=== PATIENT | female | born 1995 | race Caucasian/White ===

== ENCOUNTER 2019-04-16 02:08 | Day surgery (SDC) | payer OTHER, SELFPAY ==
[2019-04-13 14:40] VITALS: BMI 26.6
[2019-04-16] VITALS (9 sets, daily range): BP systolic 100–134; BP diastolic 52–74; PULSE 54–78; RESP 12–18; TEMP 36.2–37; O2SAT 98–100
[2019-04-16] MEDS: LACTATED RINGERS 1,000 ML 30 ML IV CONT ×2 (10:50→14:16)
--- NOTE | 2019-04-16 11:59 | WPDANESEPPF ---
Anes - Initial Pre Proc Eval Procedure: Operation Date: 04/16/19 12:30 Proposed Procedures p Laparoscopic Resection of Pelvic Mass - Fawn Graves MD Date/Time: 04/16/19 11:59 Surgeon: Fawn Graves MD Pre Op Diagnosis: pelvic swelling with mass Patient Data Age: 23 Gender: F Height: 5 ft 5 in Weight: 72.8 kg Last Vital Signs Temp 37.0 C 04/16/19 10:55 Pulse 78 04/16/19 10:55 Resp 18 04/16/19 10:55 BP 134/72 04/16/19 10:55 Pulse Ox 100 04/16/19 10:55 Allergies Allergy/AdvReac Type Severity Reaction Status Date / Time No Known Allergies Allergy Verified 04/16/19 10:57 Home Medications Medication Instructions Recorded Confirmed Type 21-iron fu-folic acid 1 tablet PO DAILY 04/13/19 04/16/19 History [ Complete] valacyclovir 500 mg PO DAILY PRN 04/13/19 04/16/19 History Patient hx anesthesia problems: none Family hx anesthesia problems: none Anes - Eval Final PreProcedure Day of Procedure 04/16/19 11:59 Patient weight: overweight Heart: regular rate and rhythm Lungs: clear to auscultation Airway: Mallampati scale class 1 Neurological: alert and oriented Last oral intake: >/= 8 hours ASA classification: II Emergent: no Anesthetic plan: proceed Anesthesia type and monitoring: general ETT and standard monitoring Informed Consent: The patient's anesthetic plan and its attendant risks and benefits were discussed with the patient/family/POA. Questions were solicited and answers provided to the satisfaction of the patient/family/POA.
--- NOTE | 2019-04-16 12:12 | PM.IMHP ---
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 It is on her right ovary. She understands that the recommended treatment of this is a surgical removal of the mass. We have agreed to perform a laparoscopic resection of pelvic mass. She understands the procedure. It was explained in detail. She understands the risk. Risks were explained in detail. She understands that injuries during surgery can result in hospitalization, prolonged illness, and more surgery. She understands there is risk of hemorrhage and infection. Review of Systems Constitutional: Constitutional: Reports no additional constitutional complaints, Denies fatigue, Denies headache(s), Denies lethargy and Denies weakness Eyes: Eyes: Reports no additional eye complaints, Denies blurry vision and Denies photophobia ENT: Reports as per HPI, Denies headache(s) and Denies neck pain Cardiovascular: Cardiovascular: Denies chest pain, Denies diaphoresis, Denies leg edema, Denies palpitations and Denies dyspnea Respiratory: Respiratory: Denies hemoptysis, Denies dyspnea and Denies wheezing Gastrointestinal: Gastrointestinal: Denies abdominal pain, Denies melena, Denies bloating, Denies hematochezia, Denies nausea and Denies vomiting Genitourinary: Genitourinary: Reports no additional female genitourinary complaints Musculoskeletal: Musculoskeletal: Denies joint swelling, Denies neck pain, Denies numbness and Denies stiffness Neurologic: Denies Abnormal speech present, Denies confusion, Denies headache(s), Denies numbness and Denies weakness Psychiatric: Psychiatric: Denies anxiety, Denies confusion, Denies depression, Denies homicidal ideation and Denies suicidal ideation Endocrine: Endocrine: Denies fatigue and Denies palpitations Allergic/Immunologic: Allergic/Immunologic: Denies wheezing Meds Home Medications and Allergies Home Medications Medication Instructions Recorded Confirmed Type 21-iron fu-folic acid 1 tablet PO DAILY 04/13/19 04/16/19 History [ Complete] valacyclovir 500 mg PO DAILY PRN 04/13/19 04/16/19 History Allergies Allergy/AdvReac Type Severity Reaction Status Date / Time No Known Allergies Allergy Verified 04/16/19 10:57 Vital Signs Vital Signs - 24 hr 04/16/19 10:55 Temperature 98.6 F Pulse Rate 78 Respiratory Rate 18 Blood Pressure 134/72 Pulse Oximetry 100 Exam Const: General: healthy appearing, comfortable and no acute distress; No confusion Orientation/consciousness: No confusion Eyes: Direct Ophthalmoscopy: No photophobia Resp: Auscultation: clear to auscultation bilaterally, no rales, no rhonchi and no wheezes Cardio: Rate: regular rate Heart sounds: no click, no murmurs and no rubs GI: Inspection: non-distended GI Palp: No abdominal tenderness Auscultation: normal bowel sounds Neuro: General: No confusion Speech: No Abnormal speech present Extrem: General: normal to inspection, no pedal edema and no calf tenderness Assessment and Plan Assessment and plan (1) Pelvic mass: Code(s): R19.00 - Intra-abdominal and pelvic swelling, mass and lump, unspecified site Status: Acute Assessment and Plan: This patient is a 23-year-old female with the 7 cm pelvic mass. 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 We have agreed to perform laparoscopic resection of pelvic mass. She understands the risks, benefits, and alternatives. She has completed the informed consent process and is ready to proceed.
[2019-04-16] MEDS: KETOROLAC 30 MG/ML VIAL (*BKC) IV PUSH (13:56)
--- NOTE | 2019-04-16 14:11 | PM.PROC ---
Procedure Note - Detailed Date of procedure: 04/16/19 Pre-op diagnosis: pelvic swelling with mass Post-op diagnosis: same Procedure performed: Laparoscopic resection of pelvic mass/ovarian cyst Description of procedure: The patient was taken the operating room. She was prepped and draped in the dorsal lithotomy position after induction of general anesthesia. A 5 mm left upper quadrant incision was made in the abdominal skin with a scalpel. A 5 mm trocar was inserted the intra-abdominal cavity under direct visualization of the scope. A 12 mm left lower quadrant incision was made with the scalp on the abdominal skin and a 5 mm trocar was inserted the intra-abdominal cavity under direct visualization of the scope. A 5 mm infraumbilical incision was made with scalpel and a 5 mm trocar was inserted into the intra-abdominal cavity under direct visualization of the scope. A 7 cm cyst was removed from the right ovary. A linear incision was made in the surface of the ovary. The outer surface of the ovary was peeled back around the cyst with blunt and sharp dissection. At the end of the dissection as the cyst was being completely freed from the ovarian parenchyma, a small hole was made at a thin area of the cyst. Some mucinous fluid spilled out. It was suction immediately as was the fluid within the ovarian cyst. The cyst was removed from the ovary the last part of the connecting tissue to the ovary was transected and cauterized. There was still a moderate great deal of healthy ovarian tissue remaining. It appeared to have good blood supply, though the whole ovary was thinned out greatly. Two of the large follicles on the left ovary were drained. They bled some and were cauterized. Hematoma was also applied to these follicles. They were hemostatic at the end the case. The left lower quadrant trocar site was closed with a 0 Vicryl transdermally. Prior to that the pneumoperitoneum was reduced and the trocars removed. The pelvis had been irrigated with copious amounts irrigation after spilling the dermoid fluid. The patient was taken recovery room stable condition. Sponge lap and needle counts were correct x2. Anesthesia: JOVANNIA Surgeon: Fawn Graves MD Estimated blood loss (mL): 40 Drains: No Packing: No Complications: No immediate complications Condition: stable Disposition: PACU Findings: 7 cm cyst within the right ovary. It contained hair and mucinous material. Multiple hyper make follicles of the left ovary. Normal appearing uterus and tubes.
[2019-04-16] MEDS: ONDANSETRON INJ 4 MG/2 ML VIAL IV PUSH (14:38)
== END 2019-04-16 16:45 | disposition home or self-care (01) ==
PROVIDERS: PCP Family Medicine; Visit Provider Obstetrics & Gynecology
PROC: (CPT 49320; principal; 2019-04-16 12:30)
DX: D27.0 Benign neoplasm of right ovary (principal)
CPT/HCPCS: 58662; 88305; 88307; A9270; J0131; J1100; J1885; J2001; J2250; J2405; J2704; J2710; J3010; J7030; J7120

== ENCOUNTER 2020-09-14 15:53 | Outpatient (CLI) | payer OTHER, SELFPAY ==
[2020-09-14] VITALS (7 sets, daily range): BP systolic 96–125; BP diastolic 60–72; PULSE 85–93
[2020-09-14 16:34] LABS: Basophils Percent Auto 0.1 % (0.2-1.2); Eosinophils Absolute Auto 0.1 K/mm3 (0-0.3); Eosinophils Percent Auto 0.9 % (0-4.4); Hemoglobin 10.8 g/dL (12.0-15.0); Immature Granulocyte Absolute 0.05 K/mm3 (0.00-0.031); Immature Granulocyte Percent A 0.4 % (0-0.5); Lymphocytes Absolute Auto 1.71 K/mm3 (0.9-3.2); Lymphocytes Percent Auto 15.4 % (18.3-44.2); Mean Corpuscular HGB Conc 32.7 g/dl (32-36); Mean Corpuscular Hemoglobin 29.6 pg (26-34); Mean Corpuscular Volume 90.4 fl (80-100); Mean Platelet Volume 9.7 fl (7.4-10.4); Monocytes Percent Auto 8.8 % (2.6-8.5); Neutrophils Absolute Auto 8.3 K/mm3 (1.3-6.7); Neutrophils Percent Auto 74.4 % (45.5-73.1); Platelet Count Result 222 k/mm3 (150-375); Red Blood Count 3.65 M/mm3 (4.2-5.4); Red Cell Distribution Width 13.4 % (11.5-14.5); White Blood Count 11.1 K/mm3 (4.5-10.0)
[2020-09-14 16:43] LABS: Alanine Aminotransferase 52 U/L (4-35); Albumin Level 3.6 g/dL (3.5-5.1); Alkaline Phosphatase 80 U/L (38-126); Anion Gap 6 mmol/L (8-16); Aspartate Amino Transferase 51 U/L (14-36); Bilirubin,Total 0.2 mg/dL (0.2-1.3); Blood Urea Nitrogen 8 mg/dL (7-17); Calcium 9.1 mg/dL (8.4-10.2); Carbon Dioxide 22 mmol/L (22-30); Chloride 108 mmol/L (98-107); Estimated Glomerular Filt Rate > 60; Glucose 91 mg/dL (65-110); Potassium 3.8 mmol/L (3.4-5.0); Sodium 136 mmol/L (137-145); Uric Acid 4.8 mg/dL (2.5-7.5)
[2020-09-14 17:15] LABS: Add Urine Microscopic? YES; Appearance Urine Cloudy (Clear); Bacteria Urine Trace /hpf; Bilirubin Urine Negative (Negative); Blood Urine Negative (Negative); Color Urine Yellow (Yellow); Glucose Urine UA Negative (Negative); Ketones Urine Negative (Negative); Leukocyte Esterase Ur Negative LEU/UL (NEGATIVE); Nitrate Urine Negative (Negative); Protein Urine Negative (Negative); Specific Grav Ur 1.019 (1.001-1.035); Squamous Epithelial Cell Urine Occasional /hpf (Few); Urobilinogen Urine Negative mg/dL (<2.0); WBC Urine 0-3 /hpf (0-3)
[2020-09-14 17:36] LABS: Creatinine Urine 103.9 mg/dL; Total Protein Urine Random 10 mg/dL
== END 2020-09-14 18:02 | disposition home or self-care (01) ==
LOC: ANHOBOP 16:00 → ANHOBPP 16:01
PROVIDERS: PCP Family Medicine; Visit Provider Obstetrics & Gynecology
DX: O13.2 Gestational [pregnancy-induced] hypertension without significant proteinuria, second trimester (principal); Z3A.23 23 weeks gestation of pregnancy
CPT/HCPCS: 36415; 59025; 80053; 81001; 82570; 84156; 84550; 85025; 87086; 87088; 99199

== ENCOUNTER 2020-09-15 16:52 | Outpatient (CLI) | payer OTHER, SELFPAY ==
[2020-09-15 16:59] VITALS: BMI 31.1
[2020-09-15 17:19] LABS: Alanine Aminotransferase 50 U/L (4-35); Albumin Level 3.5 g/dL (3.5-5.1); Alkaline Phosphatase 78 U/L (38-126); Anion Gap 8 mmol/L (8-16); Aspartate Amino Transferase 45 U/L (14-36); Bilirubin,Total 0.2 mg/dL (0.2-1.3); Blood Urea Nitrogen 9 mg/dL (7-17); Carbon Dioxide 20 mmol/L (22-30); Chloride 108 mmol/L (98-107); Estimated CRCL calculation 153 ml/min; Estimated Glomerular Filt Rate > 60; Glucose 85 mg/dL (65-110); Potassium 3.5 mmol/L (3.4-5.0); Sodium 136 mmol/L (137-145)
[2020-09-15 17:38] LABS: Collection Time Urine 24 HOURS
[2020-09-15 17:41] LABS: Patient Weight 187 Lbs; Total Volume 24 Hour Urine 1400 ml
[2020-09-15 17:52] LABS: Creatinine Clearance Urine 135.9 ml/min (75-125); Creatinine Urine 77.4 mg/dL; Total Protein Urine 24 Hr 168 mg/24hr (28-141); Total Protein Urine Random 12 mg/dL
== END 2020-09-15 16:53 | disposition home or self-care (01) ==
LOC: ANHOBOP 16:54
PROVIDERS: PCP Family Medicine; Visit Provider Obstetrics & Gynecology
DX: O16.9 Unspecified maternal hypertension, unspecified trimester (principal); Z3A.00 Weeks of gestation of pregnancy not specified
CPT/HCPCS: 36415; 80053; 81050; 82575; 84156

== ENCOUNTER 2020-10-10 13:02 | Outpatient (CLI) | payer OTHER, SELFPAY ==
[2020-10-10 13:30] VITALS: BP 115/72; PULSE 93
[2020-10-10 13:52] VITALS: BP 115/72; PULSE 93
[2020-10-10 14:02] VITALS: BP 105/39; PULSE 156
[2020-10-10 14:08] LABS: Basophils Percent Auto 0.3 % (0.2-1.2); Eosinophils Absolute Auto 0.1 K/mm3 (0-0.3); Eosinophils Percent Auto 0.6 % (0-4.4); Hematocrit 32.8 % (37.0-47.0); Hemoglobin 10.7 g/dL (12.0-15.0); Immature Granulocyte Absolute 0.06 K/mm3 (0.00-0.031); Immature Granulocyte Percent A 0.6 % (0-0.5); Lymphocytes Absolute Auto 1.59 K/mm3 (0.9-3.2); Lymphocytes Percent Auto 14.8 % (18.3-44.2); Mean Corpuscular HGB Conc 32.6 g/dl (32-36); Mean Corpuscular Hemoglobin 29.9 pg (26-34); Mean Corpuscular Volume 91.6 fl (80-100); Mean Platelet Volume 10.1 fl (7.4-10.4); Monocytes Absolute Auto 0.8 K/mm3 (0.1-0.6); Monocytes Percent Auto 7.6 % (2.6-8.5); Neutrophils Absolute Auto 8.2 K/mm3 (1.3-6.7); Neutrophils Percent Auto 76.1 % (45.5-73.1); Platelet Count Result 199 k/mm3 (150-375); Red Blood Count 3.58 M/mm3 (4.2-5.4); Red Cell Distribution Width 13.2 % (11.5-14.5); White Blood Count 10.8 K/mm3 (4.5-10.0)
[2020-10-10 14:13] LABS: Add Urine Microscopic? NO; Appearance Urine Clear (Clear); Bilirubin Urine Negative (Negative); Blood Urine Negative (Negative); Color Urine Straw (Yellow); Glucose Urine UA Negative (Negative); Ketones Urine Negative (Negative); Leukocyte Esterase Ur Negative LEU/UL (NEGATIVE); Nitrate Urine Negative (Negative); Protein Urine Negative (Negative); Specific Grav Ur 1.009 (1.001-1.035); Urobilinogen Urine Negative mg/dL (<2.0)
[2020-10-10 14:16] VITALS: BP 117/52; PULSE 89
[2020-10-10 14:18] LABS: Alanine Aminotransferase 47 U/L (4-35); Albumin Level 3.5 g/dL (3.5-5.1); Alkaline Phosphatase 90 U/L (38-126); Anion Gap 4 mmol/L (8-16); Aspartate Amino Transferase 47 U/L (14-36); Bilirubin,Total 0.1 mg/dL (0.2-1.3); Blood Urea Nitrogen 10 mg/dL (7-17); Calcium 9.1 mg/dL (8.4-10.2); Carbon Dioxide 22 mmol/L (22-30); Chloride 106 mmol/L (98-107); Estimated Glomerular Filt Rate > 60; Glucose 107 mg/dL (65-110); Potassium 3.5 mmol/L (3.4-5.0); Sodium 132 mmol/L (137-145); Uric Acid 4.5 mg/dL (2.5-7.5)
[2020-10-10 14:25] LABS: Creatinine Urine 33.8 mg/dL; Total Protein Urine Random 14 mg/dL; Ur Ttl Prot Creatinine Ratio 0.41 mg/mg (0-0.20)
[2020-10-10 14:31] VITALS: BP 103/63; PULSE 91
[2020-10-10 14:45] VITALS: BP 105/66; PULSE 88
--- NOTE | 2020-10-10 14:55 | PC.NURSE ---
Dr Graves notified of adm c/o, lab results and NST results. Orders received.
== END 2020-10-10 15:07 | disposition home or self-care (01) ==
LOC: ANHOBOP 13:14 → ANHOBPP 13:17
PROVIDERS: PCP Family Medicine; Visit Provider Obstetrics & Gynecology
DX: O13.9 Gestational [pregnancy-induced] hypertension without significant proteinuria, unspecified trimester (principal); Z3A.00 Weeks of gestation of pregnancy not specified
CPT/HCPCS: 36415; 59025; 80053; 81003; 82570; 84156; 84550; 85025; 87086; 99199

== ENCOUNTER 2020-10-11 14:50 | Outpatient (NON) | payer OTHER, SELFPAY ==
[2020-10-11 15:11] VITALS: BMI 31.7
[2020-10-11 16:06] LABS: Collection Time Urine 24 HOURS
[2020-10-11 16:17] LABS: Creatinine Urine 41.6 mg/dL; Patient Weight 190 Lbs; Total Protein Urine Random 13 mg/dL
[2020-10-11 16:44] LABS: Creatinine Clearance Urine 145.1 ml/min (75-125); Total Protein Urine 24 Hr 364 mg/24hr (28-141); Total Volume 24 Hour Urine 2800 ml
== END 2020-10-11 14:51 | disposition home or self-care (01) ==
LOC: ANHOBOP 14:52
PROVIDERS: PCP Family Medicine; Visit Provider Obstetrics & Gynecology
DX: O13.9 Gestational [pregnancy-induced] hypertension without significant proteinuria, unspecified trimester (principal)
CPT/HCPCS: 81050; 82575; 84156

== ENCOUNTER 2020-10-12 14:00 | Outpatient (CLI) | payer OTHER, SELFPAY ==
[2020-10-12 14:30] VITALS: BP 123/75; PULSE 95
[2020-10-12 14:31] VITALS: BP 123/75; PULSE 95; TEMP 36.8
[2020-10-12 14:45] VITALS: BP 125/75; PULSE 93
--- NOTE | 2020-10-12 14:49 | PC.NURSE ---
Dr. Graves informed of pt had called the office this morning with c/o headache and they instructed her to come in. Pt had a headache from 0900 to 1300 today with spots in vision also. Both symptoms resolved before pt arrived. Pt did take Tylenol this morning and has a prescription for Fioricet also, but hasn't taken that in a couple of weeks. Informed NST reactive at 27 5/7 weeks, BP's 123/75 and 125/75. Discussed pt's labs from the end of August and this past Saturday with 24 hr urine ruling her in for preeclampsia. Order received for discharge. MD wants to see pt in 2 days.
[2020-10-12 14:52] VITALS: BP 125/75; PULSE 93
== END 2020-10-12 15:05 | disposition home or self-care (01) ==
LOC: ANHOBOP 14:11 → ANHOBPP 14:11
PROVIDERS: PCP Family Medicine; Visit Provider Obstetrics & Gynecology
DX: O13.9 Gestational [pregnancy-induced] hypertension without significant proteinuria, unspecified trimester (principal); Z3A.00 Weeks of gestation of pregnancy not specified
CPT/HCPCS: 59025; 99199

== ENCOUNTER 2020-11-26 14:13 | Outpatient (CLI) | payer OTHER, SELFPAY ==
[2020-11-26 14:30] VITALS: BP 134/83; PULSE 97
[2020-11-26 14:45] VITALS: BP 122/77; PULSE 92
[2020-11-26 15:00] VITALS: BP 120/81; PULSE 91
[2020-11-26 15:15] VITALS: BP 121/74; PULSE 87
[2020-11-26 15:30] VITALS: BP 116/69; PULSE 86
--- NOTE | 2020-11-26 15:58 | PC.NURSE ---
Alma Perdomo notified of GONZALEZ and hx of elevated BP's during this , labs from Saturday, reactive NST, Normal BP's today. OK for patient to take 2 Fioricet as needed for headaches.
== END 2020-11-26 15:44 | disposition home or self-care (01) ==
LOC: ANHOBOP 14:19 → ANHOBPP 14:22
PROVIDERS: PCP Family Medicine; Visit Provider Obstetrics & Gynecology
DX: R51.9 Headache, unspecified (principal); Z34.90 Encounter for supervision of normal pregnancy, unspecified, unspecified trimester; Z3A.00 Weeks of gestation of pregnancy not specified
CPT/HCPCS: 59025; 99199

== ENCOUNTER 2020-11-27 00:16 | Observation (INO) | payer OTHER, SELFPAY ==
[2020-11-27] VITALS (8 sets, daily range): BP systolic 105–132; BP diastolic 59–82; PULSE 75–91; BMI 38.4
[2020-11-27 00:51] LABS: Basophils Percent Auto 0.3 % (0.2-1.2); Eosinophils Absolute Auto 0.1 K/mm3 (0-0.3); Eosinophils Percent Auto 1.4 % (0-4.4); Hematocrit 31.8 % (37.0-47.0); Hemoglobin 10.6 g/dL (12.0-15.0); Immature Granulocyte Absolute 0.04 K/mm3 (0.00-0.031); Immature Granulocyte Percent A 0.4 % (0-0.5); Lymphocytes Absolute Auto 1.65 K/mm3 (0.9-3.2); Lymphocytes Percent Auto 18.3 % (18.3-44.2); Mean Corpuscular HGB Conc 33.3 g/dl (32-36); Mean Corpuscular Hemoglobin 29.6 pg (26-34); Mean Corpuscular Volume 88.8 fl (80-100); Mean Platelet Volume 10.4 fl (7.4-10.4); Monocytes Percent Auto 11.4 % (2.6-8.5); Neutrophils Absolute Auto 6.1 K/mm3 (1.3-6.7); Neutrophils Percent Auto 68.2 % (45.5-73.1); Platelet Count Result 188 k/mm3 (150-375); Red Blood Count 3.58 M/mm3 (4.2-5.4); Red Cell Distribution Width 13.7 % (11.5-14.5)
[2020-11-27] MEDS: LACTATED RINGERS 1,000 ML 150 ML IV CONT (01:00)
[2020-11-27 01:01] LABS: Add Urine Microscopic? NO; Appearance Urine Clear (Clear); Bilirubin Urine Negative (Negative); Blood Urine Negative (Negative); Color Urine Straw (Yellow); Glucose Urine UA Negative (Negative); Ketones Urine Negative (Negative); Leukocyte Esterase Ur Negative LEU/UL (Negative); Nitrate Urine Negative (Negative); Protein Urine Negative (Negative); Specific Grav Ur 1.005 (1.001-1.035); Urobilinogen Urine Negative mg/dL (<2.0)
[2020-11-27] MEDS: diphenhydrAMINE HCl INJ 50 MG/ML VIAL 25 MG IV PUSH (01:01)
[2020-11-27 01:08] LABS: Alanine Aminotransferase 44 U/L (4-35); Albumin Level 3.3 g/dL (3.5-5.1); Alkaline Phosphatase 116 U/L (38-126); Anion Gap 6 mmol/L (8-16); Aspartate Amino Transferase 43 U/L (14-36); Bilirubin,Total 0.3 mg/dL (0.2-1.3); Blood Urea Nitrogen 10 mg/dL (7-17); Calcium 9.1 mg/dL (8.4-10.2); Carbon Dioxide 22 mmol/L (22-30); Chloride 109 mmol/L (98-107); Estimated Glomerular Filt Rate > 60; Glucose 99 mg/dL (65-110); Potassium 3.8 mmol/L (3.4-5.0); Sodium 137 mmol/L (137-145)
[2020-11-27] MEDS: METOCLOPRAMIDE HCL INJ 10 MG/2 ML VIAL IV PUSH (01:19)
--- NOTE | 2020-11-27 04:03 | LDADM ---
This patient, Martina Aguilera, was admitted to [facility] on 11/27/20 at 00:16. Plans for labor, pain management and were discussed with patient. Patient/family oriented to hospital policies and general routines including ID bracelet, bed and alarms, visiting hours, pain management, procedures, bathroom and other care routines, personal items, smoking policy, room service/diet and guest tray routines, infant security routines, and visiting hours. Patient/Family are encouraged to report perceived risks to care and to ask questions if they do not understand what they are told or what they should do. See OBIX for further documentation.
--- NOTE | 2020-11-30 17:46 | P.PNOB_ITS ---
OB - Triage/Final Diagnosis Visit Information Date of evaluation: 11/27/20 Reason for evaluation: other (headache) Comments/Additional reasons for admission: I have assessed the risk for this patient, Martina Aguilera, and determined that she would benefit from observation care. Evaluation Laboratory results: Laboratory Tests 11/27/20 11/27/20 11/27/20 00:45 00:45 00:45 WBC 9.0 RBC 3.58 L Hgb 10.6 L Hct 31.8 L MCV 88.8 MCH 29.6 MCHC 33.3 RDW 13.7 Plt Count 188 MPV 10.4 Immature Gran % (Auto) 0.4 Neut % (Auto) 68.2 Lymph % (Auto) 18.3 Carl[place] % (Auto) 11.4 H Eos % (Auto) 1.4 Baso % (Auto) 0.3 Lymph # (Auto) 1.65 [place] # (Auto) 1.0 H Eos # (Auto) 0.1 Baso # (Auto) 0.0 Abs Immat Gran (auto) 0.04 H Absolute Neuts (auto) 6.1 Absolute Nucleated RBC 0.0 Nucleated RBC % 0.0 Sodium 137 Potassium 3.8 Chloride 109 H Carbon Dioxide 22 Anion Gap 6 L BUN 10 Creatinine 0.50 L Estim Creat Clear Calc Not Reportable Estimated GFR > 60 Glucose 99 Uric Acid 5.0 Calcium 9.1 Total Bilirubin 0.3 AST 43 H ALT 44 H Alkaline Phosphatase 116 Total Protein 6.0 L Albumin 3.3 L Urine Color Urine Appearance Urine pH Ur Specific [place] Urine Protein Urine Glucose (UA) Urine Ketones Ur Blood (Man) Urine Nitrate Urine Bilirubin Urine Urobilinogen Leukocyte Esterase Rfl 11/27/20 00:45 WBC RBC Hgb Hct MCV MCH MCHC RDW Plt Count MPV Immature Gran % (Auto) Neut % (Auto) Lymph % (Auto) [place] % (Auto) Eos % (Auto) Baso % (Auto) Lymph # (Auto) [place] # (Auto) Eos # (Auto) Baso # (Auto) Abs Immat Gran (auto) Absolute Neuts (auto) Absolute Nucleated RBC Nucleated RBC % Sodium Potassium Chloride Carbon Dioxide Anion Gap BUN Creatinine Estim Creat Clear Calc Estimated GFR Glucose Uric Acid Calcium Total Bilirubin AST ALT Alkaline Phosphatase Total Protein Albumin Urine Color Straw Urine Appearance Clear Urine pH 7.0 Ur Specific [place] 1.005 Urine Protein Negative Urine Glucose (UA) Negative Urine Ketones Negative Ur Blood (Man) Negative Urine Nitrate Negative Urine Bilirubin Negative Urine Urobilinogen Negative Leukocyte Esterase Rfl Negative
== END 2020-11-27 04:22 | disposition home or self-care (01) ==
PROVIDERS: Advanced Practice Midwife; Admitting Provider Obstetrics & Gynecology; PCP Family Medicine; Visit Provider Obstetrics & Gynecology
DX: O26.899 Other specified pregnancy related conditions, unspecified trimester (principal); R51.9 Headache, unspecified; Z3A.00 Weeks of gestation of pregnancy not specified
CPT/HCPCS: 36415; 80053; 81003; 84550; 85025; 96361; 96374; 96375; G0378; G0379; J1200; J2765; J7120

== ENCOUNTER 2020-11-28 10:49 | Inpatient (IN) | payer OTHER, SELFPAY ==
[2020-11-28] VITALS (8 sets, daily range): BP systolic 112–138; BP diastolic 67–79; PULSE 82–91; BMI 38.3
--- NOTE | ~2020-11-28 | CT_ITS ---
EXAMINATION: CT brain wo con DATE: 11/29/2020 09:07 INDICATION: Intermittent frontal headache. TECHNIQUE: Computed tomography (CT) of the head was performed without intravenous contrast. The mA wa s adjusted according to patient size. Iterative reconstruction technique was employed. Exam dose: 60 5.33 mGy-cm total exam DLP. COMPARISON: None FINDINGS: No intracranial mass lesion or hemorrhage or cerebrovascular accident. No midline shift or mass effect effect. Normal ventricular size. Normal ponce-white matter differentiation. No subdural or epidural hematoma. No fracture or bone destruction of the urinary bladder. The mastoid air cells and included paranasal sinuses are normally developed and aerated. IMPRESSION: No significant abnormality Reviewed, dictated and finalized at [facility]. Reviewed, dictated and finalized at [facility]. IMPRESSION: No significant abnormality
--- NOTE | 2020-11-28 10:58 | PM.OBPRVD ---
OB - Delivery Note Procedure Delivery date: 11/28/20 Procedure: vaginal delivery events: Induced HTN Intrapartal events: Precipitous Labor < 3 hours Induction method: AROM and per pitocin protocol Delivery monitor: external FHT and external uterine Route of delivery: Episiotomy description: None Laceration Description: None Specimen: Yes Quantitative Blood Loss (ml): 85 Disposition: floor [place] [facility] Date of : 11/28/20 Time of : 10:37 Weeks of gestation at delivery: 37 gender: Female Weight (pounds): 6 Weight (ounces): 13 presentation: vertex Placenta delivery description: Spontaneous cord vessel description: 3 Vessels and Delayed Cord Clamping score one minute: 8 score five minutes: 9 Narrative: precipitous delivery by RN, CNM arrived and mother and baby in stable condition, placenta delivered by CNM and intact perineum
[2020-11-28 11:59] LABS: Basophils Percent Auto 0.2 % (0.2-1.2); Eosinophils Absolute Auto 0.1 K/mm3 (0-0.3); Eosinophils Percent Auto 0.7 % (0-4.4); Hematocrit 32.2 % (37.0-47.0); Hemoglobin 10.5 g/dL (12.0-15.0); Immature Granulocyte Absolute 0.03 K/mm3 (0.00-0.031); Immature Granulocyte Percent A 0.3 % (0-0.5); Lymphocytes Absolute Auto 1.74 K/mm3 (0.9-3.2); Lymphocytes Percent Auto 17.9 % (18.3-44.2); Mean Corpuscular HGB Conc 32.6 g/dl (32-36); Mean Corpuscular Hemoglobin 29.2 pg (26-34); Mean Corpuscular Volume 89.4 fl (80-100); Mean Platelet Volume 10.2 fl (7.4-10.4); Monocytes Absolute Auto 0.9 K/mm3 (0.1-0.6); Monocytes Percent Auto 9.5 % (2.6-8.5); Neutrophils Absolute Auto 6.9 K/mm3 (1.3-6.7); Neutrophils Percent Auto 71.4 % (45.5-73.1); Platelet Count Result 201 k/mm3 (150-375); Red Cell Distribution Width 13.6 % (11.5-14.5); White Blood Count 9.7 K/mm3 (4.5-10.0)
[2020-11-28 12:01] LABS: Add Urine Microscopic? NO; Appearance Urine Clear (Clear); Bilirubin Urine Negative (Negative); Blood Urine Negative (Negative); Color Urine Straw (Yellow); Glucose Urine UA Negative (Negative); Ketones Urine Negative (Negative); Leukocyte Esterase Ur Negative LEU/UL (NEGATIVE); Nitrate Urine Negative (Negative); Protein Urine Negative (Negative); Specific Grav Ur 1.005 (1.001-1.035); Urobilinogen Urine Negative mg/dL (<2.0)
[2020-11-28 12:02] LABS: Alanine Aminotransferase 45 U/L (4-35); Albumin Level 3.6 g/dL (3.5-5.1); Alkaline Phosphatase 134 U/L (38-126); Anion Gap 7 mmol/L (8-16); Aspartate Amino Transferase 48 U/L (14-36); Bilirubin,Total < 0.1 mg/dL (0.2-1.3); Blood Urea Nitrogen 9 mg/dL (7-17); Carbon Dioxide 21 mmol/L (22-30); Chloride 109 mmol/L (98-107); Estimated Glomerular Filt Rate > 60; Glucose 74 mg/dL (65-110); Potassium 3.8 mmol/L (3.4-5.0); Sodium 137 mmol/L (137-145); Uric Acid 5.2 mg/dL (2.5-7.5)
[2020-11-28 12:14] LABS: Creatinine Urine 15.2 mg/dL; Total Protein Urine Random 13 mg/dL; Ur Ttl Prot Creatinine Ratio 0.86 mg/mg (0-0.20)
[2020-11-28] MEDS: diphenhydrAMINE HCl INJ 50 MG/ML VIAL 25 MG IV PUSH (12:17)
[2020-11-28] MEDS: METOCLOPRAMIDE HCL INJ 10 MG/2 ML VIAL IV PUSH (12:18)
[2020-11-28] MEDS: BETAMETHASONE SOD PHOS/ACETATE 30 MG/5 ML VIAL 12 MG IM (12:18)
--- NOTE | 2020-11-28 12:32 | PC.NURSE ---
Dr Mai notified of BP's and lab results. Orders received. Plan for overnight stay with BP monitoring.
[2020-11-28] MEDS: LACTATED RINGERS 1,000 ML 999 ML IV CONT (12:58)
[2020-11-28] MEDS: ACETAMINOPHEN 325 MG TABLET 650 MG PO (13:07)
--- NOTE | 2020-11-28 16:10 | PC.NURSE ---
Patient states that she felt a little leaking. ROM plus performed.
[2020-11-28] MEDS: MORPHINE SULFATE INJ (*CRX) 10 MG/ML AMP 5 MG IV PUSH (21:07)
--- NOTE | 2020-11-28 22:50 | OBADM ---
This patient, Martina Aguilera, admitted to the OB room [facility] for observation. Patient/family oriented to hospital policies and general routines including ID bracelet, bed and alarms, visiting hours, pain management, procedures, bathroom and other care routines, personal items, smoking policy, room service/diet, and visiting hours. Patient/Family are encouraged to report perceived risks to care and to ask questions if they do not understand what they are told or what they should do.
[2020-11-29] VITALS (19 sets, daily range): BP systolic 108–149; BP diastolic 55–104; PULSE 84–103; RESP 18; TEMP 36.1–36.6; BMI 38.5
--- NOTE | 2020-11-29 07:45 | PM.IMHP ---
H&P: HPI History of Present Illness Date/Time: 11/29/20 07:45 Chief Complaint: GONZALEZ Narrative: Martina is a 25yo G1 at 34.6 with known preE who had severe BPs in office yesterday. She has had GONZALEZ off and on for weeks, but this week has been the worst, with it almost being constant. last night had morphine and then slept for 3 hours, but then it returned. fiMachine Safety Manangementet has not been working. GONZALEZ is frontal, pressure like. PIH labs have been fine except for very mildly elevated liver enzymes taht have been stable. BPs in office were 140/90 and 160/110. Here they have been 110s-130s/70s. RN spoke with Dr Siegel today and she stated that ophtho said she was at risk for vitreous detachment but that she does not have it. She is ok for induction of labor and vaginal delivery when delivery needed. Review of Systems Review of Systems: All systems reviewed & are unremarkable except as noted in HPI and below Meds Home Medications and Allergies Home Medications Medication Instructions Recorded Confirmed Type Complete 1 tablet PO DAILY 04/13/19 11/28/20 History acetaminophen 1,000 mg PO Q6H PRN 10/12/20 11/28/20 History Allergies Allergy/AdvReac Type Severity Reaction Status Date / Time No Known Allergies Allergy Verified 04/16/19 10:57 Vital Signs Vital Signs - 24 hr 11/28/20 11:10 11/28/20 11:16 11/28/20 11:31 Temperature Pulse Rate 88 88 89 Blood Pressure 131/72 130/79 Blood Pressure [Right Arm] 131/72 11/28/20 11:46 11/28/20 12:01 11/28/20 14:05 Temperature Pulse Rate 87 82 86 Blood Pressure 112/74 118/79 129/72 Blood Pressure [Right Arm] 11/28/20 16:13 11/28/20 20:47 11/29/20 05:11 Temperature 97.5 F L Pulse Rate 86 91 Blood Pressure 136/77 138/67 Blood Pressure [Right Arm] 11/29/20 05:12 11/29/20 07:15 11/29/20 07:16 Temperature Pulse Rate 103 H 92 88 Blood Pressure 108/55 L 139/76 145/81 H Blood Pressure [Right Arm] 11/29/20 07:31 Temperature Pulse Rate 94 Blood Pressure 134/75 Blood Pressure [Right Arm] Exam Const: General: no acute distress Resp: Effort & Inspection: normal respiratory effort Auscultation: clear to auscultation bilaterally Cardio: Rate: regular rate Rhythm: regular rhythm GI: GI Palp: Yes Soft to palpation Extrem: General: normal to inspection H&P: Results Labs Labs: Short CBC 11/28/20 Range/Units 11:38 WBC 9.7 (4.5-10.0) K/mm3 Hgb 10.5 L (12.0-15.0) g/dL Hct 32.2 L (37.0-47.0) % Plt Count 201 (150-375) k/mm3 BMP 11/28/20 11:38 Sodium 137 Potassium 3.8 Chloride 109 H Carbon Dioxide 21 L BUN 9 Creatinine 0.60 L Glucose 74 Calcium 9.0 Liver Function 11/28/20 Range/Units 11:38 Total Bilirubin < 0.1 L (0.2-1.3) mg/dL AST 48 H (14-36) U/L ALT 45 H (4-35) U/L Alkaline Phosphatase 134 H (38-126) U/L Albumin 3.6 (3.5-5.1) g/dL Urine 11/28/20 Range/Units 11:38 Urine Color Straw (Yellow) Urine Appearance Clear (Clear) Urine pH 7.0 (5.0-9.0) Ur Specific [place] 1.005 (1.001-1.035) Urine Protein Negative (Negative) mg/dL Urine Glucose (UA) Negative (Negative) mg/dL Assessment and Plan Additional Plan Known PreE- normotensive here GONZALEZ- of subacute duration, but worsening this week. fioricet prn, may also have morphine prn if severe. Neurology consult and CT head today. If no other etiology of GONZALEZ found, delivery is indicated due to severe PreE. repeat PIH labs this afternoon. May have vaginal delivery per Dr Armin NEUMANN FHT category 1
--- NOTE | 2020-11-29 08:06 | PC.NURSE ---
0805-SVE performed by , pt is closed. POC discussed with pt and her .
--- NOTE | 2020-11-29 08:07 | PC.NURSE ---
0715- called,informed would like him to consult on the pt d/t to ongoing headache. He will be by this afternoon to see pt.
--- NOTE | 2020-11-29 12:15 | WPDNEURCNPN ---
Assessment and Plan Additional Plan considering the nonfocal neurological examination with no acute signs of meningeal irritation and negative CT scan of the brain be treated symptomatically with simple pain medication preferably not the Fiorinal which makes a person have rebound headaches and planned up to the wire bound box machine helper whether she should deliver or not 1 she is delivered she can follow in the office as an outpatient for the ongoing treatment for the headache but at this stage she looks completely comfortable Consult date: 11/29/20 Time Seen: 11:00 HPI: Martina Aguilera is a 25 year old female 1 with known preeclampsia and hypertension has been admitted to [facility] on OBGYN floor with the complaints of severe headache which is more severe the day of admission requiring morphine and other pain medications including Fioricet but no response as for the headache is concerned neurology consultation has been obtained for that reason reportedly her blood pressure in the office was 140/90 and 160/110 but in the hospital blood pressure have been running systolic between 110 to 130s and diastolic 70s additionally patient was told by the application programmer analyst she has a risk for vitreous detachment because she had been seeing the spots. As per the information available she is on complete vitamins and Tylenol and she is not allergic to any medication evaluation up until now includes normal BMP normal hepatic enzymes except the alkaline phosphatase of 134 AST 48 and ALT 45, negative UA and normal CT scan of the head with no evidence of bleed space-occupying lesion or hydrocephalus Review of Systems Review of Systems: All systems reviewed & are unremarkable except as noted in HPI and below Meds Home Medications and Allergies Home Medications Medication Instructions Recorded Confirmed Type Complete 1 tablet PO DAILY 04/13/19 11/28/20 History acetaminophen 1,000 mg PO Q6H PRN 10/12/20 11/28/20 History Allergies Allergy/AdvReac Type Severity Reaction Status Date / Time No Known Allergies Allergy Verified 04/16/19 10:57 Vital Signs Vital Signs - 24 hr 11/28/20 14:05 11/28/20 16:13 11/28/20 20:47 Temperature Pulse Rate 86 86 91 Blood Pressure 129/72 136/77 138/67 Blood Pressure [Right Arm] 11/29/20 05:11 11/29/20 05:12 11/29/20 07:15 Temperature 36.4 C L Pulse Rate 103 H 92 Blood Pressure 108/55 L 139/76 Blood Pressure [Right Arm] 11/29/20 07:16 11/29/20 07:31 11/29/20 07:46 Temperature Pulse Rate 88 94 92 Blood Pressure 145/81 H 134/75 149/90 H Blood Pressure [Right Arm] 11/29/20 07:48 11/29/20 11:30 Temperature Pulse Rate 92 86 Blood Pressure 137/74 Blood Pressure [Right Arm] 134/75 Exam Const: General: cooperative, healthy appearing, comfortable and no acute distress Nutritional Appearance: overweight Orientation/consciousness: oriented to person, oriented to place and oriented to time Limitations: no limitations HENMT: Head: normal to inspection and normocephalic Ears: hearing grossly normal bilaterally General nose exam: Normal external nose present Face and sinus: normal facial exam Eyes: General: appearance normal, both eyes and all related structures Visual Corea: normal visual corea by confrontation Alignment and Position: alignment normal Periorbital: periorbital findings normal Eyelids: eyelids normal Conjunctivae: conjunctivae normal Sclera: sclerae normal Cornea: corneas normal Pupils: Equal, round and reactive pupils present EOM: EOMs intact bilaterally Neck: Neck: normal visual inspection and full ROM Resp: Effort & Inspection: normal respiratory effort and able to speak in complete sentences Auscultation: clear to auscultation bilaterally Neuro: General: oriented to person, oriented to place and oriented to time Cranial nerves: Yes CN's II-XII intact bilaterally Cognition (Neuro): normal cognition Speech: normal speech Gait exam
[2020-11-29] MEDS: ACETAMINOPHEN 325 MG TABLET 650 MG PO ×2 (12:26→20:30)
[2020-11-29] MEDS: BETAMETHASONE SOD PHOS/ACETATE 30 MG/5 ML VIAL 12 MG IM (12:28)
--- NOTE | 2020-11-29 13:33 | PC.NURSE ---
1115- here to assess pt, states he would have the pt take plain tylenol for headaches and no further follow up is needed at this time. called, informed CT was normal and that Dr. Birch recommends using tylenol for headaches. No further orders received.
[2020-11-29 15:19] LABS: Basophils Percent Auto 0.1 % (0.2-1.2); Eosinophils Percent Auto 0.2 % (0-4.4); Hematocrit 30.8 % (37.0-47.0); Hemoglobin 9.8 g/dL (12.0-15.0); Lymphocytes Absolute Auto 1.32 K/mm3 (0.9-3.2); Lymphocytes Percent Auto 13.1 % (18.3-44.2); Mean Corpuscular HGB Conc 31.8 g/dl (32-36); Mean Corpuscular Hemoglobin 28.5 pg (26-34); Mean Corpuscular Volume 89.5 fl (80-100); Mean Platelet Volume 10.4 fl (7.4-10.4); Monocytes Absolute Auto 0.6 K/mm3 (0.1-0.6); Monocytes Percent Auto 5.8 % (2.6-8.5); Neutrophils Absolute Auto 7.9 K/mm3 (1.3-6.7); Neutrophils Percent Auto 78.8 % (45.5-73.1); Platelet Count Result 202 k/mm3 (150-375); Red Blood Count 3.44 M/mm3 (4.2-5.4); Red Cell Distribution Width 13.6 % (11.5-14.5); White Blood Count 10.1 K/mm3 (4.5-10.0)
[2020-11-29 15:30] LABS: Alanine Aminotransferase 40 U/L (4-35); Albumin Level 3.4 g/dL (3.5-5.1); Alkaline Phosphatase 125 U/L (38-126); Anion Gap 9 mmol/L (8-16); Aspartate Amino Transferase 38 U/L (14-36); Bilirubin,Total < 0.1 mg/dL (0.2-1.3); Blood Urea Nitrogen 9 mg/dL (7-17); Calcium 8.9 mg/dL (8.4-10.2); Carbon Dioxide 20 mmol/L (22-30); Chloride 110 mmol/L (98-107); Estimated CRCL calculation 145 ml/min; Estimated Glomerular Filt Rate > 60; Glucose 172 mg/dL (65-110); Potassium 3.6 mmol/L (3.4-5.0); Sodium 139 mmol/L (137-145); Uric Acid 5.5 mg/dL (2.5-7.5)
--- NOTE | 2020-11-29 15:49 | PC.NURSE ---
1549- called with lab results. Orders received to start cervidil induction. Pt may have occasional fioricet for headache.
[2020-11-29] MEDS: DINOPROSTONE 10 MG VAG INSERT VAGINAL (16:44)
--- NOTE | 2020-11-29 17:50 | LDADM ---
This patient, Martina Aguilera, was admitted to Labor/Delivery/Recovery 108 on 11/28/20 at 10:49. Plans for labor, pain management and were discussed with patient. Patient/family oriented to hospital policies and general routines including ID bracelet, bed and alarms, visiting hours, pain management, procedures, bathroom and other care routines, personal items, smoking policy, room service/diet and guest tray routines, security routines, and visiting hours. Patient/Family are encouraged to report perceived risks to care and to ask questions if they do not understand what they are told or what they should do. See OBIX for further documentation.
--- NOTE | 2020-11-29 18:48 | WPDANESEPP ---
Anes - Eval Pre Procedure Procedure: Labor epidural Date/Time: 11/29/20 18:48 Surgeon: ifnesse Preop Diagnosis: Abd pain with contractions Pre Op Diagnosis: Elevated BP Patient Data Age: 25 Gender: F Height: 1.65 m Weight: 105 kg Last Vital Signs Temp 96.9 F L 11/29/20 07:15 Pulse 89 11/29/20 18:30 BP 125/73 11/29/20 18:30 Allergies Allergy/AdvReac Type Severity Reaction Status Date / Time No Known Allergies Allergy Verified 04/16/19 10:57 Home Medications Medication Instructions Recorded Confirmed Type Complete 1 tablet PO DAILY 04/13/19 11/28/20 History acetaminophen 1,000 mg PO Q6H PRN 10/12/20 11/28/20 History Laboratory Tests 11/29/20 11/29/20 11/29/20 14:59 14:59 16:30 WBC 10.1 K/mm3 H K/mm3 (4.5-10.0) RBC 3.44 M/mm3 L M/mm3 (4.2-5.4) Hgb 9.8 g/dL L g/dL (12.0-15.0) Hct 30.8 % L % (37.0-47.0) MCV 89.5 fl fl (80-100) MCH 28.5 pg pg (26-34) MCHC 31.8 g/dl L g/dl (32-36) RDW 13.6 % % (11.5-14.5) Plt Count 202 k/mm3 k/mm3 (150-375) MPV 10.4 fl fl (7.4-10.4) Immature Gran % (Auto) 2.0 % H % (0-0.5) Neut % (Auto) 78.8 % H % (45.5-73.1) Lymph % (Auto) 13.1 % L % (18.3-44.2) [place] % (Auto) 5.8 % % (2.6-8.5) Eos % (Auto) 0.2 % % (0-4.4) Baso % (Auto) 0.1 % L % (0.2-1.2) Lymph # (Auto) 1.32 K/mm3 K/mm3 (0.9-3.2) [place] # (Auto) 0.6 K/mm3 K/mm3 (0.1-0.6) Eos # (Auto) 0.0 K/mm3 K/mm3 (0-0.3) Baso # (Auto) 0.0 K/mm3 K/mm3 (0.0-0.1) Abs Immat Gran (auto) 0.20 K/mm3 H K/mm3 (0.00-0.031) Absolute Neuts (auto) 7.9 K/mm3 H K/mm3 (1.3-6.7) Absolute Nucleated RBC 0.0 K/mm3 K/mm3 (0.0-0.012) Nucleated RBC % 0.0 % % (0.0-0.2) Sodium 139 mmol/L mmol/L (137-145) Potassium 3.6 mmol/L mmol/L (3.4-5.0) Chloride 110 mmol/L H mmol/L (98-107) Carbon Dioxide 20 mmol/L L mmol/L (22-30) Anion Gap 9 mmol/L mmol/L (8-16) BUN 9 mg/dL mg/dL (7-17) Creatinine 0.60 mg/dL L mg/dL (0.7-1.0) Estim Creat Clear Calc 145 ml/min ml/min Estimated GFR > 60 (59 - ) Glucose 172 mg/dL H mg/dL (65-110) Uric Acid 5.5 mg/dL mg/dL (2.5-7.5) Calcium 8.9 mg/dL mg/dL (8.4-10.2) Total Bilirubin < 0.1 mg/dL L mg/dL (0.2-1.3) AST 38 U/L H U/L (14-36) ALT 40 U/L H U/L (4-35) Alkaline Phosphatase 125 U/L U/L (38-126) Total Protein 6.0 g/dL L g/dL (6.3-8.2) Albumin 3.4 g/dL L g/dL (3.5-5.1) RPR Pending Blood Type Antibody Screen 11/29/20 16:30 WBC RBC Hgb Hct MCV MCH MCHC RDW Plt Count MPV Immature Gran % (Auto) Neut % (Auto) Lymph % (Auto) [place] % (Auto) Eos % (Auto) Baso % (Auto) Lymph # (Auto) [place] # (Auto) Eos # (Auto) Baso # (Auto) Abs Immat Gran (auto) Absolute Neuts (auto) Absolute Nucleated RBC Nucleated RBC % Sodium Potassium Chloride Carbon Dioxide Anion Gap BUN Creatinine Estim Creat Clear Calc Estimated GFR Glucose Uric Acid Calcium Total Bilirubin AST ALT Alkaline Phosphatase Total Protein Albumin RPR Blood Type O Positive Antibody Screen Negative Patient hx anesthesia problems: none Family hx anesthesia problems: none Results Review: All pre-operative results and documents have been reviewed as part of the pre-operative evaluation. [facility] Past Medical History Medical History (Reviewed 11/29/20 @
[2020-11-29] MEDS: ZOLPIDEM TARTRATE (*CRX) 5 MG TABLET PO (20:30)
[2020-11-29] MEDS: LACTATED RINGERS 1,000 ML 125 ML IV CONT (23:13)
[2020-11-30] VITALS (210 sets, daily range): BP systolic 112–169; BP diastolic 46–133; PULSE 64–121; RESP 16–24; TEMP 36.1–37.3; O2SAT 82–100
[2020-11-30] MEDS: ACETAMINOPHEN 325 MG TABLET 650 MG PO (05:23)
[2020-11-30] MEDS: DINOPROSTONE 10 MG VAG INSERT VAGINAL (06:55)
--- NOTE | 2020-11-30 07:24 | PM.OBPNLAB ---
Pain Control Date/time seen: 11/30/20 07:24 second cervadil, sve closed per RN, plan magnesium sulfate with pitocin, induction for severe preeclampsia
[2020-11-30] MEDS: LACTATED RINGERS 1,000 ML 125 ML IV CONT (10:40)
--- NOTE | 2020-11-30 12:13 | PM.OBPNLAB ---
Pain Control Date/time seen: 11/30/20 12:13 cervadil removed, SVE 1-2/50/-2 AROM moderate amount of clear doorless fluid, anticipate vaginal delivery
[2020-11-30] MEDS: AMPICILLIN 2 GM/NS 100 ML 2 GM/100 ML BAG IVPB (13:05)
[2020-11-30] MEDS: LACTATED RINGERS 1,000 ML 75 ML IV CONT (13:40)
[2020-11-30] MEDS: OXYTOCIN 30 UNITS/NS 500 ML 30 UNITS/500 ML BAG IV CONT (13:40)
[2020-11-30] MEDS: MAGNESIUM SULF 4 GM/WATER100ML 4 GM/100 ML BAG IVPB (13:49)
[2020-11-30 13:50] LABS: Rapid Plasma Reagin Non-Reactive (NonReactive)
[2020-11-30] MEDS: MAGNESIUM SULF 20GM/WATER500ML 500 ML 50 MG IV CONT (14:19)
[2020-11-30] MEDS: ONDANSETRON INJ 4 MG/2 ML VIAL IV PUSH (16:35)
[2020-11-30] MEDS: AMPICILLIN 1 GM/NS 50 ML 1 GM/50 ML BAG IVPB (17:01)
[2020-11-30] MEDS: miSOPROStol 200 MCG TABLET 1000 MCG RECTAL (20:07)
[2020-11-30] MEDS: CARBOPROST TROMETHAMINE 250 MCG/ML AMPUL IM (20:11)
[2020-11-30] MEDS: OXYTOCIN 30 UNITS/NS 500 ML 30 UNITS/500 ML BAG 125 UNITS IV CONT (20:29)
[2020-11-30] MEDS: LOPERAMIDE HCL 2 MG CAPSULE PO (20:30)
--- NOTE | 2020-11-30 20:32 | P.PCNOB_ITS ---
OB - Delivery Note Procedure Delivery date: 11/30/20 Procedure: vaginal delivery events: Pre-Eclampsia Intrapartal events: Severe Preeclampsia Induction method: AROM, per pitocin protocol and per cervidil protocol Delivery monitor: external FHT, external uterine and internal uterine Route of delivery: Episiotomy description: None Laceration Description: Perineal - 1st Degree Delivery repair: vicryl Specimen: Yes Quantitative Blood Loss (ml): 860 Anesthesia type: Epidural Disposition: floor [place] Baby Date of : 11/30/20 Time of : 19:59 Weeks of gestation at delivery: 34 gender: Female Weight (pounds): 6 Weight (ounces): 2 presentation: vertex position: Left Occiput Transverse Placenta delivery description: Spontaneous cord vessel description: 3 Vessels and Clamped/Cut score one minute: 7 score five minutes: 8 Narrative: Bleeding increased after delivery of placenta, pitocin started prior to placental delivery. Cytotec 1000mcg placed while internally and externally m assaging fundus dose of hemabate given and bakri placed when blood loss at 700cc. 300 cc placed in balloon and bleeding stopped. brock placed and will plan brock and bakri removal in am. Dr. Graves aware, pt in stable condition. Baby skin to skin and then to nursery for monitoring due to GA.
[2020-12-01] VITALS (7 sets, daily range): BP systolic 105–143; BP diastolic 66–82; PULSE 75–105; RESP 16–20; TEMP 36.1–37.1; O2SAT 97–100
[2020-12-01] MEDS: MAGNESIUM SULF 20GM/WATER500ML 500 ML 50 MG IV CONT ×2 (00:25→10:37)
[2020-12-01] MEDS: IBUPROFEN 600 MG TABLET PO ×3 (04:18→16:55)
[2020-12-01 05:43] LABS: Hematocrit 29.6 % (37.0-47.0); Hemoglobin 9.8 g/dL (12.0-15.0)
--- NOTE | 2020-12-01 08:03 | P.PNOB_ITS ---
OB - PN: Subj Subjective Date/time seen: 12/01/20 08:03 Patient comments: no complaints baby status: doing well OB - PN: Obj Data Labs CBC & Chem 7: 12/01/20 04:20 11/29/20 14:59 Labs: Laboratory Results - last 24 hr 11/29/20 12/01/20 16:30 04:20 Hgb 9.8 L Hct 29.6 L RPR Non-reactive OB - PN A/P Plan day: 1 Plan: routine care Comments: Bleeding minimal. Labs stable. Will remove bakri balloon Time Spent With Patient Time: Total time spent is greater than 50% in coordination of care (as docum ented) at patient's floor/unit and/or counseling patient: Time with patient: less than 15 minutes Review of Systems Review of Systems: All systems reviewed & are unremarkable except as noted in HPI and below Exam Narrative: Fundus firm and vaginal flow controlled. No lower ext redness, warmth, or edema. Negative homans. Denies h/a, v/d or e/p. Reflexes normal. Const: General: comfortable Chest: Breast/axilla inspection: normal inspection of the breasts Resp: Effort & Inspection: normal respiratory effort Cardio: Rate: regular rate GI: GI Palp: Yes Soft to palpation Psych: Appearance: grossly normal Affect: normal affect Attitude: cooperative Thought content: Yes Normal thought content present Judgement: Good judgement present (Psych)
--- NOTE | 2020-12-01 08:34 | PM.OBPNVD ---
OB - PN: Subj Subjective Date/time seen: 12/01/20 08:34 Patient comments: no complaints, pain well controlled and tolerating diet OB - PN: Obj Data Labs CBC & Chem 7: 12/01/20 04:20 11/29/20 14:59 Labs: Laboratory Results - last 24 hr 11/29/20 12/01/20 16:30 04:20 Hgb 9.8 L Hct 29.6 L RPR Non-reactive OB - PN A/P Assessment and Plan (1) hemorrhage: Code(s): O72.1 - Other immediate hemorrhage Status: Acute Assessment and Plan: hemorrhage was managed with a balkri balloon. Bakri balloon was removed today. Minimal bleeding was observed with after removal of the balloon. Plan day: 2 Plan: routine care and discharge home Time Spent With Patient Time: Total time spent is greater than 50% in coordination of care (as documented) at patient's floor/unit and/or counseling patient: Exam Const: General: comfortable and no acute distress Resp: Effort & Inspection: normal respiratory effort Auscultation: no rales, no rhonchi and no wheezes Cardio: Rate: regular rate Heart sounds: no click, no murmurs and no rubs GI: GI Palp: Yes Soft to palpation and No Tenderness to palpation present (GI) Auscultation: normal bowel sounds Extrem: General: normal to inspection, no pedal edema and no calf tenderness
--- NOTE | 2020-12-01 09:10 | WPDANLDPN2 ---
Anes-Prog Note L&D Date/Time: 12/01/20 09:10 Comfortable throughout: labor and delivery Neuraxial method: epidural Neuro status: Neuro function grossly intact. Cardiovascular status: normal Respiratory status: normal Airway patency: baseline Mental status: baseline Post-Op hydration status: normal Vital Signs: Last Vital Signs Temp 36.2 C L 12/01/20 07:50 Pulse 84 12/01/20 07:50 Resp 18 12/01/20 07:50 BP 127/73 12/01/20 07:50 Pulse Ox 98 12/01/20 07:50 Pain score (VAS): 0 I/O: Intake & Output 11/30/20 12/01/20 12/01/20 23:59 07:59 15:59 Intake Total 1250 800 Output Total 1745 2300 Balance -495 -1500 Post-procedural complaints: none Patient feedback: Patient satisfied with anesthetic care.
[2020-12-01] MEDS: MULTIVIT/MIN/PREN/FOL AC/IRON TABLET 1 TAB PO (10:41)
[2020-12-01] MEDS: DOCUSATE SODIUM 100 MG CAPSULE PO ×2 (10:41→16:55)
[2020-12-01] MEDS: POLYSACCHARIDE IRON COMPLEX 150 MG CAPSULE PO ×2 (10:41→16:55)
--- NOTE | 2020-12-01 11:00 | PC.NURSE ---
Consult with pt., mother wishes to pump due to is currently bottle feeding. Mother is on Mag and has been level II and is 34 weeks gestation. Discussed establishing in the infant may be more difficult due to their immaturity, may be less alert, have less stamina, and have greater difficulty with latch, suck, and swallow. Infant?s feeding may impact mother?s milk supply, pumping may need to continued until milk supply is well established and is able to effective without supplementation. Breast pump provided due to mother's wishes. Instructions given on breast pump care and usage, pumping schedule, nipple care, and collection and storage of breast milk. Encouraged [id number] when is able, breast massage and manual expression to stimulate supply. Assessed patient for correct flange size, placement and draw. Patient verbalizes and demonstrates understanding of instructions. Discussed colostrum vs milk supply and mother may not see more than a few drops the first few days, milk should transition in by day 3 and she may see more volume pumped per session.
--- NOTE | 2020-12-01 12:26 | PC.NURSE ---
0835-Assisted Dr. Graves with removal of Bakri Balloon; 300 ml removed from balloon; output was 20 ml. Patient tolerated fine.
[2020-12-01 13:17] LABS: Hematocrit 26.4 % (37.0-47.0); Hemoglobin 8.7 g/dL (12.0-15.0); Mean Platelet Volume 9.9 fl (7.4-10.4); Platelet Count Result 231 k/mm3 (150-375); Red Cell Distribution Width 13.8 % (11.5-14.5); White Blood Count 13.9 K/mm3 (4.5-10.0)
[2020-12-01 13:28] LABS: Alanine Aminotransferase 31 U/L (4-35); Alkaline Phosphatase 117 U/L (38-126); Anion Gap 4 mmol/L (8-16); Aspartate Amino Transferase 30 U/L (14-36); Bilirubin,Total 0.2 mg/dL (0.2-1.3); Blood Urea Nitrogen 6 mg/dL (7-17); Calcium 6.8 mg/dL (8.4-10.2); Carbon Dioxide 25 mmol/L (22-30); Chloride 105 mmol/L (98-107); Estimated CRCL calculation 126 ml/min; Estimated Glomerular Filt Rate > 60; Glucose 84 mg/dL (65-110); Potassium 3.5 mmol/L (3.4-5.0); Sodium 134 mmol/L (137-145); Uric Acid 5.4 mg/dL (2.5-7.5)
[2020-12-02 00:24] VITALS: BP 96/55; PULSE 78; RESP 16; TEMP 36.6; O2SAT 95
[2020-12-02 04:21] VITALS: BP 106/64; PULSE 68; RESP 16; TEMP 36.9; O2SAT 96
--- NOTE | 2020-12-02 07:44 | PM.OBPNVD ---
OB - PN: Subj Subjective Date/time seen: 12/02/20 07:44 Patient comments: no complaints, pain well controlled and tolerating diet OB - PN: Obj Data Labs CBC & Chem 7: 12/01/20 13:04 12/01/20 13:04 Labs: Laboratory Results - last 24 hr 12/01/20 12/01/20 13:04 13:04 WBC 13.9 H RBC 3.00 L Hgb 8.7 L Hct 26.4 L MCV 88.0 MCH 29.0 MCHC 33.0 RDW 13.8 Plt Count 231 MPV 9.9 Sodium 134 L Potassium 3.5 Chloride 105 Carbon Dioxide 25 Anion Gap 4 L BUN 6 L Creatinine 0.70 Estim Creat Clear Calc 126 Estimated GFR > 60 Glucose 84 Uric Acid 5.4 Calcium 6.8 L Total Bilirubin 0.2 AST 30 ALT 31 Alkaline Phosphatase 117 Total Protein 6.0 L Albumin 3.0 L Imaging Radiologist's impression: Impressions Head CT 11/29/20 09:53 IMPRESSION: No significant abnormality ADDENDUM: 12/01/20 1405 Correction: FINDINGS: No fracture or bone destruction of the CRANIAL VAULT. OB - PN A/P Plan day: 2 Plan: routine care and discharge home Time Spent With Patient Time: Total time spent is greater than 50% in coordination of care (as documented) at patient's floor/unit and/or counseling patient: Exam Const: General: comfortable and no acute distress Resp: Effort & Inspection: normal respiratory effort Auscultation: no rales, no rhonchi and no wheezes Cardio: Rate: regular rate Heart sounds: no click, no murmurs and no rubs GI: GI Palp: Yes Soft to palpation and No Tenderness to palpation present (GI) Auscultation: normal bowel sounds Extrem: General: normal to inspection, no pedal edema and no calf tenderness
--- NOTE | 2020-12-02 07:47 | PM.OBDSVD ---
DS: Admitting Diagnosis Discharge Date 12/02/20 Admitting Diagnosis Severe PREE DS: Discharge Diagnosis Discharge Diagnosis (1) hemorrhage: Code(s): O72.1 - Other immediate hemorrhage Status: Acute (2) Preeclampsia, severe: Code(s): O14.10 - Severe pre-eclampsia, unspecified trimester Status: Acute OB - DS: Summary OB Procedures : NST and Ultrasound OB Procedures Intrapartum: Spontaneous Vag Delivery OB Procedures: : None Time Spent with Patient Time attestation: Total time spent providing and/or coordinating discharge services: DS: Data Data Completed and Pending Pending studies at discharge: Pending at discharge 11/30/20 21:18 Surgical [PTH] Routine Labs on day of discharge: Labs from last 24 hours 12/01/20 12/01/20 13:04 13:04 WBC 13.9 H RBC 3.00 L Hgb 8.7 L Hct 26.4 L MCV 88.0 MCH 29.0 MCHC 33.0 RDW 13.8 Plt Count 231 MPV 9.9 Sodium 134 L Potassium 3.5 Chloride 105 Carbon Dioxide 25 Anion Gap 4 L BUN 6 L Creatinine 0.70 Estim Creat Clear Calc 126 Estimated GFR > 60 Glucose 84 Uric Acid 5.4 Calcium 6.8 L Total Bilirubin 0.2 AST 30 ALT 31 Alkaline Phosphatase 117 Total Protein 6.0 L Albumin 3.0 L Discharge Plan Discharge Consulting providers: Jose Birch Discharging Clinician: Fawn Graves Patient Disposition: Home, Self-Care Activity: pelvic rest Diet: regular Patient Instructions: Antibiotic Form Stand Alone Forms: General Discharge Information Follow-up/Referrals: Fawn Graves MD [Physician] - Discharge Medications: Continued Complete 14 mg iron- 400 mcg Tablet 1 tablet PO DAILY RF: 0 acetaminophen 500 mg Capsule 1,000 mg PO Q6H PRN (Reason: Headache) RF: 0 Date of admission: 11/28/20 10:49 Primary Care Provider: Selvin Beck Admitting Provider: Lindsey Mai Attending physician on admission: Lindsey Mai Condition: Stable
[2020-12-02 08:15] VITALS: BP 135/77; PULSE 82; RESP 18; TEMP 36.6; O2SAT 99
--- NOTE | 2020-12-02 09:00 | PC.NURSE ---
Mother is feeding as required and waking to feed if needed. is bottle feeding with increased effort and is currently meeting outcomes for weight, output, and feeding frequencies. Infant is more awake and eager to feed today. Jaundice will be redrawn today. Mother continues to pump without difficulties or discomfort. Mother is pumping 5mls each session and giving to as part of supplement. Mother states she feels confident to continue current feeding plan at home. Mother has her own double electric pump for home use. Discussed increasing supplementation as requires to satisfaction. Reviewed paced feeding and suggested to stop when infant is satisfied, as long as infant is having required output. With increased supplementation infant may not want to feed for 4 hours. Mother will continue to pump on infant feeding schedule and will increase session to 20 minutes if pumping every 4 hours. Reviewed once mother?s milk is established and mother feels comfortable she may initiate to breast. Reviewed once infant is effectively feeding, infant may have increased intake with nursing. If infant is effective feeding with long draws and frequent swallowing noted, infant may be ready to decrease/discontinue supplementation. Advised not to discontinue supplement until ICP, Follow-Up RN or LC has a pre/post weighted evaluation of infant feeding. Reviewed transition to breast milk, signs of adequate intake, and engorgement/relief. Instructed to call ICP if intake/output less than required. Reviewed regular medications mother is taking. Information provided per Karen. Reviewed community resources on the [employer] website and in the Mom/Baby guide. Information on outpatient services provided. Mother has no further questions at this time.
[2020-12-02] MEDS: DOCUSATE SODIUM 100 MG CAPSULE PO (09:33)
[2020-12-02] MEDS: POLYSACCHARIDE IRON COMPLEX 150 MG CAPSULE PO (09:33)
[2020-12-02] MEDS: MULTIVIT/MIN/PREN/FOL AC/IRON TABLET 1 TAB PO (09:33)
[2020-12-02 11:59] VITALS: BP 121/79; PULSE 77; RESP 18; TEMP 36.9; O2SAT 99
[2020-12-05 09:53] VITALS: BP 128/79; PULSE 90; RESP 20; TEMP 37.1; O2SAT 99
== END 2020-12-02 15:30 | disposition home or self-care (01) | DRG 768 ==
LOC: ANHOBOP 22:06 → ANHOB2 12-02 07:49 → ANHLDR 12-05 10:00 → ANHOB2 12-05 10:00 → ANHOBPP 12-05 10:00
PROVIDERS: Advanced Practice Midwife; Admitting Provider Obstetrics & Gynecology; PCP Family Medicine; Visit Provider Obstetrics & Gynecology
DX: O14.14 Severe pre-eclampsia complicating childbirth (principal); Z37.0 Single live birth; Z3A.34 34 weeks gestation of pregnancy; O60.14X0 Preterm labor third trimester with preterm delivery third trimester, not applicable or unspecified; O36.8330 Maternal care for abnormalities of the fetal heart rate or rhythm, third trimester, not applicable or unspecified; O70.0 First degree perineal laceration during delivery; O99.824 Streptococcus B carrier state complicating childbirth; O62.3 Precipitate labor; O99.214 Obesity complicating childbirth; E66.01 Morbid (severe) obesity due to excess calories; O72.1 Other immediate postpartum hemorrhage
CPT/HCPCS: 36415; 59025; 70450; 80053; 81003; 82570; 84112; 84156; 84550; 85014; 85018; 85025; 85027; 86592; 86850; 86900; 86901; 87086; 88307; 96372; A9270; J0290; J0702; J1200; J2270; J2405; J2590; J2765; J3475; J7120

== ENCOUNTER 2021-06-05 00:06 | Day surgery (SDC) | payer OTHER, SELFPAY ==
[2021-05-30 12:29] VITALS: BMI 30.4
--- NOTE | 2021-05-30 12:36 | PC.NURSE ---
Report to the Outpatient Waiting Room, entrance under the green pavilion located off [facility], at time 0830 on date 06/05/21. OR Time: 1030. - You and your visitor will be asked a series of questions to screen for COVID 19 for your protection. - A mask is required within the hospital. One visitor will be allowed to accompany the patient into the hospital. Patients visitor will be instructed to remain with patient at all times or leave the building. We will allow the visitor to come back to the postoperative area when patient is ready. Preoperative COVID Testing Requirements: No COVID Test needed if: (proof is required; if not received patient will have Rapid Test prior to entry) - Patient has received COVID Vaccine at least 14 days prior to procedure date or - Patient has positive COVID test result within last 90 days of surgery date. COVID Test needed if above criteria is not met Patients may have clear liquids (water, carbonated beverages, clear teas, apple juice) until 3 hours prior to surgery with a maximum of 20 ounces. - No food from midnight until time of surgery Take the following medications with a SIP of water the morning of surgery: VALACYCLOVIR Medications to discontinue per physician: VITAMINS/SUPPLEMENTS Date to take last dose: 06/01/21 Please no make-up, nail [place] citizen, hairspray, perfume, deodorant, or body powder the day of surgery. No jewelry (including any body piercings) or valuables the day of surgery, leave them at home. Please take a shower or bath the night before, or the morning of, surgery with an antibacterial soap. Wear comfortable, loose fitting clothing. - Jewelry must be removed prior to entering the operating room. Rings and piercings that are not removed may be cut off. - The hospital will not accept responsibility for valuables. - Please leave all valuables, including medications, at home the day of surgery. If you are going home after surgery, a licensed skip load driver must drive you home. - NO public transportation without another adult. - We recommend that an adult stay with you for 24 hours following discharge. - We also recommend that you do not drive, make important decision, drink alcoholic beverages, or take any drugs that were not prescribed by your health care provider for at least 24 hours after your discharge time. Follow any additional instructions given to you from your surgeon. Telephone instructions given to PETTY NEWSOME and asked if any additional questions and then verbalized understanding. Patient advised to call surgeon office or pre surgery nurse liaison [phone] if any additional questions.
[2021-06-05] VITALS (7 sets, daily range): BP systolic 106–130; BP diastolic 60–79; PULSE 52–88; RESP 14–18; TEMP 36.1–36.2; O2SAT 100
--- NOTE | 2021-06-05 08:49 | WPDHPUPDATE1 ---
History and Physical Update Update Date/Time: 06/05/21 08:49 History and Physical has been reviewed, including an updated exam of the patient. There are NO changes in the patient's condition. Risks, benefits, and alternatives have been discussed and questions answered. Patient agrees to proceed with procedure.
--- NOTE | 2021-06-05 08:50 | WPDANESEPPF ---
Anes - Initial Pre Proc Eval Procedure: Operation Date: 06/05/21 10:30 Proposed Procedures p Excision of Simple Pilonidal Cyst - Akil Jiang MD Date/Time: 06/05/21 08:50 Surgeon: Akil Jaing MD Pre Op Diagnosis: simple pilonidal cyst Patient Data Age: 25 Gender: F Height: 1.65 m Weight: 83 kg Allergies Allergy/AdvReac Type Severity Reaction Status Date / Time No Known Allergies Allergy Verified 05/30/21 12:29 Home Medications Medication Instructions Recorded Confirmed Type lactobacillus combo no.11 15 1 cap PO DAILY 04/25/21 05/30/21 History billion cell sprinkle capsule valacyclovir 500 mg tablet 500 mg PO DAILY 05/30/21 05/30/21 History Patient hx anesthesia problems: none Family hx anesthesia problems: none Results Review: All pre-operative results and documents have been reviewed as part of the pre-operative evaluation. 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 Informed Consent: The patient's anesthetic plan and its attendant risks and benefits were discussed with the patient/family/POA. Questions were solicited and answers provided to the satisfaction of the patient/family/POA.
[2021-06-05] MEDS: LACTATED RINGERS 1,000 ML 30 ML IV CONT (08:55)
[2021-06-05] MEDS: KETOROLAC 15 MG/ML VIAL (*BKC) IV PUSH (09:00)
[2021-06-05] MEDS: ACETAMINOPHEN 500 MG TABLET 1000 MG PO (09:00)
[2021-06-05] MEDS: ceFAZolin 2 GM/D5W 50 ML 2 GM/50 ML BAG IVPB (09:09)
--- NOTE | 2021-06-05 10:17 | P.OP_ITS ---
Procedure Note - Detailed Date of Procedure 06/05/21 Pre-op Diagnosis simple pilonidal cyst Post-op Diagnosis Same Procedure Performed Excision of simple pilonidal cyst Surgeon Akil Jiang MD Electronic Data Processing Auditor Hailey LOPEZ OR Pickle Processor Anesthesia General Indications Patient has had on and off drainage from a small poor like opening on the upper crease several times over the last 1-3 years. Findings Apparent pilonidal single cyst and tract in the emily crease. Description of Procedure The patient was brought to the operating room and placed under general tracheal anesthesia on the operating room cart before rolling her prone on the operative room table. She was appropriately padded and placed face down in a foam pad which nicely protected the endotracheal tube and her face, head, and neck structures. In order to see the area well benzoin was placed on the buttocks on each side and 2 pieces of nylon tape were used to tape the buttocks across apart exposing the emily crease well. Following this we clipped and prepared the area of the pilonidal crease at the upper end of the crease. This was prepped with Betadine near the anal opening and chlorhexidine on the upper emily crease skin. After a surgical time out confirming patient and procedure the patient was prepped and draped in the usual sterile fashion. Local anesthetic was administered subcutaneously after outlining an elliptical S-shaped incision around the lesion identified right in the upper crease and to include excision of the skin of the emily crease. Total length the incision was about 3-4 cm. Skin and the underlying subcutaneous tissue including the cyst that was present was excised. A 15 blade knife was used to make the initial incision after injecting local anesthetic using 0.25 Marcaine with epinephrine. I believe I completely circumvented the lesion because there was no sign of a cyst tract or a cyst after we excised the skin and subcutaneous tissue in this area. I believe in some areas we excised clear down to the superficial presacral fascia. Bleeding was controlled with electrocautery. Following this the tapes that we had placed on her buttocks to separate the buttocks from the emily crease during the excision were released such that we could begin sewing the area back together. The wound was closed in layers. Multiple un-dyed 2-0 Vicryl deep and superficial subcutaneous and then deep dermal sutures were placed. Following this the opening was closed in a somewhat S-shape starting slightly to the left of midline inferiorly and extending slightly to the right of midline superiorly. Multiple simple and vertical mattress sutures of 3-0 nylon were used to approximate the skin edges. Following this dressing was applied using Telfa, a folded fluff and then 2 medium Tegaderms to completely seal the wound. Patient tolerated the procedure well. Implants none Estimated Blood Loss -5.0 Drains No Packing No Pathology Yes (Skin subcutaneous tissues and suspected pilonidal cyst of the crease) Complications No immediate complications Condition Stable Disposition PACU
--- NOTE | 2021-06-05 10:27 | SUR.PHASEI ---
PT STATES SHE IS NOW HAVING SOME DISCOMFORT 5-08/04. PT DOES NOT WANT ANY PAIN MEDICINE AT THIS TIME. AWAKE AND ALERT. RESTING QUIETLY.
[2021-06-05] MEDS: oxyCODONE HCL (*CRX) 5 MG TAB IR PO (11:11)
== END 2021-06-05 11:55 | disposition home or self-care (01) ==
PROVIDERS: PCP Family Medicine; Visit Provider Surgery
PROC: (CPT 11770; principal; 2021-06-05 10:30)
DX: L90.5 Scar conditions and fibrosis of skin (principal); E66.9 Obesity, unspecified; Z68.31 Body mass index [BMI] 31.0-31.9, adult
CPT/HCPCS: 11770; 88305; A9270; J0690; J1100; J1885; J2250; J2405; J2704; J2710; J3010; J7120

== ENCOUNTER 2023-05-29 00:34 | Day surgery (SDC) | payer BC, SELFPAY ==
[2023-05-20 13:45] VITALS: BMI 28.7
--- NOTE | 2023-05-20 13:45 | PC.NURSE ---
Report to the Outpatient Waiting Room, entrance under the green pavilion located off [facility], at time _0600_ on date _[id number]_. Planned Procedure Time: _0730_. Time changes happen often and if your time is changed the preop area will call you the afternoon before. - You and your visitor will be asked to self-screen and do not enter if you have any COVID symptoms. - A mask is optional within the hospital at this time. Patients may have clear liquids (water, carbonated beverages, clear teas, apple juice) until 3 hours prior to surgery with a maximum of 20 ounces. - No food from midnight until time of surgery Take the following medications with a SIP of water the morning of surgery: ___None DO NOT STOP ANY OF YOUR OTHER PRESCRIPTION MEDICATIONS PRIOR TO SURGERY ?EXCEPT THE FOLLOWING Medications to discontinue per physician None Date to take last dose Please no make-up, nail armenian, hairspray, perfume, deodorant, or body powder the day of surgery. No jewelry (including any body piercings) or valuables the day of surgery, leave them at home. Please take a shower or bath the night before, or the morning of, surgery with an antibacterial soap. Wear comfortable, loose fitting clothing. - Jewelry must be removed prior to entering the operating room. Rings and piercings that are not removed may be cut off. - The hospital will not accept responsibility for valuables. - Please leave all valuables, including medications, at home the day of surgery. If you are going home after surgery, a licensed delivery driver/supervisor must drive you home. - NO public transportation without another adult if you receive anesthesia. - We recommend that an adult stay with you for 24 hours following discharge. - We also recommend that you do not drive, make important decision, drink alcoholic beverages, or take any drugs that were not prescribed by your health care provider for at least 24 hours after your discharge time. Follow any additional instructions given to you from your surgeon. If you or anyone in your household have experienced Covid symptoms in the past week, please notify your surgeon or the nurse liaison at the phone number below for possible testing. Telephone instructions given to __[email or web address]__and asked if any additional questions and then verbalized understanding. Patient advised to call surgeon office or pre surgery nurse liaison [phone] if any additional questions.
--- NOTE | 2023-05-22 10:28 | SUR.PREOP ---
05/22/23 1025 PT CALLED TO REPORT NEW MEDICATION. MEDICATION WAS ADDED TO HER MED LIST, INSTRUCTED PT SHE MAY TAKE THIS MEDICATION MORNING OF SURGERY.
--- NOTE | 2023-05-28 13:16 | WPDANESEPPF ---
Anes - Initial Pre Proc Eval Procedure: Operation Date: 05/29/23 07:30 Proposed Procedures p Hysteroscopy Dilation and Curettage Nakia Endometrial Ablation, - Fawn Graves MD s Diagnostic Laparoscopy, Bilateral Laparoscopic Salpingectomy - Fawn Graves MD Date/Time: 05/28/23 13:16 Surgeon: Fawn Graves MD Pre Op Diagnosis: menorrhagia, desires sterilization, pelvic pain Patient Data Age: 27 Gender: F Height: 1.65 m Weight: 78.2 kg Allergies Allergy/AdvReac Type Severity Reaction Status Date / Time No Known Allergies Allergy Verified 05/20/23 13:40 Home Medications Medication Instructions Recorded Confirmed Type valacyclovir 500 mg tablet 500 mg PO DAILY 05/30/21 05/20/23 History (Valtrex) gabapentin 300 mg capsule 300 mg PO BID 05/22/23 05/22/23 History Patient hx anesthesia problems: none Family hx anesthesia problems: none Results Review: All pre-operative results and documents have been reviewed as part of the pre-operative evaluation. 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 Informed Consent: The patient's anesthetic plan and its attendant risks and benefits were discussed with the patient/family/POA. Questions were solicited and answers provided to the satisfaction of the patient/family/POA.
[2023-05-29] MEDS: KETOROLAC 15 MG/ML VIAL (*BKC) IV PUSH (06:30)
[2023-05-29] MEDS: LACTATED RINGERS 1,000 ML 30 ML IV CONT ×2 (06:30→08:47)
[2023-05-29] MEDS: ACETAMINOPHEN 500 MG TABLET 1000 MG PO (06:45)
[2023-05-29 07:00] VITALS: BP 106/66; PULSE 82; RESP 16; TEMP 37.2; O2SAT 100
--- NOTE | 2023-05-29 07:23 | WPDHPUPDATE1 ---
History and Physical Update Update Date/Time: 05/29/23 07:23 History and Physical has been reviewed, including an updated exam of the patient. There are NO changes in the patient's condition. Risks, benefits, and alternatives have been discussed and questions answered. Patient agrees to proceed with procedure.
--- NOTE | 2023-05-29 07:23 | PM.IMHP ---
H&P: HPI History of Present Illness Date/Time: 05/29/23 07:23 Chief Complaint: Menorrhagia, pelvic pain Narrative: this patient is a 27-year-old female with severe menorrhagia, unwanted fertility, pelvic pain. We have agreed to perform hysteroscopy D&C with endometrial ablation, diagnostic laparoscopy with bilateral salpingectomy. Patient understands procedure. She also understands risk. She understands injuries may occur that result in hospitalization, more surgery, and severe illness. She understands there is risk of hemorrhage infection. She denies any nausea, vomiting, fever, chills. She denies any chest pain shortness of breath. Review of Systems Review of Systems: All systems reviewed & are unremarkable except as noted in HPI and below Constitutional: Constitutional: Denies chills, Denies fatigue, Denies fever(s) and Denies weakness Eyes: Eyes: Denies blurry vision, Denies change in vision, Denies loss of peripheral vision, Denies loss of vision, Denies other visual disturbances and Denies eye pain ENT: Denies vertigo, Denies dizziness, Denies hearing loss, Denies mouth pain, Denies nasal obstruction, Denies neck mass and Denies neck pain Cardiovascular: Cardiovascular: Denies chest pain, Denies diaphoresis, Denies syncope, Denies leg edema and Denies dyspnea Respiratory: Respiratory: Denies chest congestion, Denies cough, Denies hemoptysis, Denies dyspnea and Denies wheezing Gastrointestinal: Gastrointestinal: Denies abdominal pain, Denies constipation, Denies diarrhea, Denies nausea and Denies vomiting Genitourinary: Genitourinary: Denies hematuria, Denies change in libido, Denies nocturia, Denies genital lesions, Denies flank pain and Denies urinary urgency Musculoskeletal: Musculoskeletal: Denies abnormal gait, Denies back pain, Denies myalgias, Denies arthralgias, Denies joint swelling, Denies muscle weakness and Denies neck pain Integumentary/Breasts: Skin/Breast: Denies swelling, Denies breast pain, Denies breast mass, Denies dry skin, Denies nipple discharge, Denies unusual bruising and Denies jaundice Neurologic: Denies Neuro-related abnormal movements, Denies Abnormal speech present, Denies abnormal gait, Denies behavioral changes, Denies confusion, Denies vertigo, Denies dizziness, Denies syncope, Denies loss of vision, Denies memory loss, Denies convulsions and Denies weakness Psychiatric: Psychiatric: Denies abnormal sleep pattern, Denies behavioral changes, Denies change in libido, Denies confusion, Denies depression, Denies anhedonia and Denies memory loss Endocrine: Endocrine: Reports no additional endocrine complaints, Denies change in libido and Denies fatigue Hematologic/Lymphatic: Hematologic/Lymphatic: Reports no additional hematologic/lymphatic complaints Allergic/Immunologic: Allergic/Immunologic: Reports no additional allergic/immunologic complaints and Denies wheezing PMFSH Past Medical History Medical History Preeclampsia, severe Surgical History Surgical History History of excision of pilonidal cyst Ovary, benign neoplasm ovarian tumor removal Family History Family History Grandparent Cerebrovascular accident Social History Social History Smoking status: Never smoker Second hand tobacco smoke exposure: No Alcohol intake: current Drinks per week: 2 Alcohol use details: 2/MONTH Substance use: never Substance use type: does not use Living arrangements: with family Occupation/Education: occupation 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
[2023-05-29 08:47] VITALS: BP 121/86; PULSE 89; RESP 18; TEMP 36.5; O2SAT 100
[2023-05-29 09:00] VITALS: BP 98/78; PULSE 72; RESP 15; O2SAT 100
[2023-05-29 09:15] VITALS: BP 93/78; PULSE 76; RESP 20; O2SAT 100
[2023-05-29 09:22] VITALS: BP 130/114; PULSE 66
--- NOTE | 2023-05-29 09:24 | P.OP_ITS ---
Procedure Note - Detailed Date of Procedure 05/29/23 Pre-op Diagnosis menorrhagia, desires sterilization, pelvic pain Post-op Diagnosis Same Procedure Performed Laparoscopic bilateral salpingectomy with endometrial ablation and hysteroscopy. diagnostic laparoscopy with resection of endometriosis Surgeon Fawn Graves MD Anesthesia General Indications Menorrhagia, female sterilization Findings endometrial implants in 3 locations On the bilateral pelvic sidewalls. Otherwise normal pelvic anatomy with normal vulva, vagina, cervix and endometrial Description of Procedure Patient was taken the operating room. She has prepped draped in the dorsal lithotomy position after induction of general anesthesia. A 5 mm abdominal incision was made in left upper quadrant of the abdomen with scalpel. A 5 mm trocars inserted the intra-abdominal cavity under direct visualization of the scope. Pneumoperitoneum was achieved. A 5 mm periumbilical incision was made using a scalpel on the abdominal scan. A 5 mm trocar was inserted the intra- abdominal cavity under visualization of the scope. A 5 mm incision made left lower quadrant of the abdomen. A 5 mm trocar was inserted the intra-abdominal cavity and direct visualization of the scope. The bilateral fallopian tubes were removed. The paratubal tissue in the area of the uterus was grasped with the LigaSure cautery and transected after being cauterized. The paratubal tissue from the ovary to the uterine cornu was cauterized and transected with LigaSure cautery. This was all done in a bilateral fashion. The tube was transected at the area of the uterine cornua and the tubes was removed through the 5 mm trocar site. the ovary was suspended on the left side with a 0 Vicryl using a Champ- Mitch needle. Was placed through the left lower quadrant trocar site with the suture and through the ovary. The suture was then withdrawn and taken out through the same site. It was held in place with hemostat. Reviewed pillars placed the endometrial cavity using a tenaculum speculum. Endometrial implant on the left was resected using LigaSure cautery. The pelvic peritoneum left pelvic sidewall was removed. Ureter was exposed from the pelvic brim down to the uterine artery. The pneumoperitoneum was reduced. The trocars were removed. The skin was closed with subcuticular 4 Monocryl and covered with Dermabond. Our attention was then turned to the endometrial ablation portion of the procedure. A speculum was placed in the vagina. The cervix was grasped with a tenaculum. The cervix was dilated to approximately 8 mm with Linton dilators. The hysteroscope was inserted. And the below findings were noted. All of the intrauterine surfaces were curettaged with a medium-size curette and the specimens were collected. Measurements of the cervix were taken using the uterine sound and the hysteroscope. The intrauterine cavity measurements were entered into the handpiece. The device was inserted into the intrauterine cavity and the array was expanded. The balloon cuff was inflated. When an adequate seal was formed the safety and energy cycles were initiated and completed. The array was collapsed, the balloon was deflated. The insert was withdrawn. The hysteroscope was reinserted and a well desiccated intrauterine cavity was observed. The patient was taken recovery room stable condition. Sponge lap and needle counts were correct x2. She tolerated the procedure well. Pathology Yes Complications No immediate complications Condition Stable Disposition PACU
[2023-05-29 09:50] VITALS: BP 109/54; PULSE 84
== END 2023-05-29 09:58 | disposition home or self-care (01) ==
PROVIDERS: PCP Family Medicine; Visit Provider Obstetrics & Gynecology
PROC: 0U5B8ZZ Destruction of Endometrium, Via Natural or Artificial Opening Endoscopic (ICD-10-PCS; CPT 58563; principal; 2023-05-29 07:30)
PROC: (CPT 49320; 2023-05-29 07:30)
DX: N92.0 Excessive and frequent menstruation with regular cycle (principal); Z30.2 Encounter for sterilization; N80.353 Endometriosis of bilateral pelvic sidewall, unspecified depth
CPT/HCPCS: 58661; 58563; 58662; 88302; 88305; A9270; J1100; J1885; J2250; J2405; J2704; J3010; J7030; J7120